=== PATIENT | female | born 1945 | race Caucasian/White ===

== ENCOUNTER 2017-09-15 08:17 | Day surgery (SDC) | payer MEDICARE, OTHER ==
[~2017-09-15] VITALS: Ht 152.4 cm; Wt 88.5 kg
[~2017-09-15 08:17] MED LIST: BYST10TA2 PO; DIOV160T6 PO; FELO10TA PO; GLYB5TA PO; HYDR25TAB PO; OFLOXACIN 0.3 % (OCUFLOX) OPTH SOL 5ML OS ONE; PHENYLEPHRINE 2.5% OPHTH SOL 2ML OS ONE; POTA10TA16 PO; PROPARACAINE 0.5% OPHTH SOL 15ML OS ONE; TROPICAMIDE 1% OPHTH SOLN 2ML OS ONE; ZOCO20TA PO
[2017-09-15] MEDS ORDERED: BALANCED SALT IRRIGATION SOLUTION 500ML BAG (FOR OR EYE MACHINE) As Ordered ONE (09:53)
[2017-09-15] MEDS ORDERED: CEFUROXIME 1MG/0.1ML INTRACAMERAL INJ As Ordered ONE (09:53)
[2017-09-15] MEDS ORDERED: POVIDONE-IODINE 5% OPHTH PREP SOL 30ML As Ordered ONE (09:53)
[2017-09-15] MEDS ORDERED: ACETYLCHOLINE OPHTH SOLN 1% 2ML (MIOCHOL-E) As Ordered ONE (09:53)
[2017-09-15] MEDS ORDERED: DUOVISC (0.50ML VISCOAT/0.55ML PROVISC) OPHTH KIT As Ordered ONE (09:53)
[2017-09-15] MEDS ORDERED: LIDOCAINE 0.75%/EPINEPHRINE 0.025% IN BSS 1ML SYR INTRACAMERAL (OR ONLY) As Ordered ONE (09:53)
[2017-09-15] MEDS ORDERED: fentaNYL 100 MCG/2 ML INJECTION (J3010) As Ordered ONE (10:13)
[2017-09-15] MEDS ORDERED: MIDAZOLAM INJ 2 MG/2 ML VIAL (J2250) As Ordered ONE (10:13)
[2017-09-15 11:30] VITALS: BP 172/73
--- NOTE | 2017-09-17 10:53 | RO ---
DATE OF PROCEDURE: 09/15/2017 PREOPERATIVE DIAGNOSIS: Visually significant nuclear sclerotic cataract left eye. POSTOPERATIVE DIAGNOSIS: Visually significant nuclear sclerotic cataract left eye. PROCEDURE: Cataract extraction with use of phacoemulsification and placement of intraocular lens, AU00T0, 18.0 diopters eye. SURGEON: David Hess DO [employer]: ANESTHESIA: Local with monitored anesthesia care (MAC). COMPLICATIONS: None. POSTOPERATIVE CONDITION: Stable. INDICATION FOR SURGERY: Blurred vision left eye affecting patient's activities of daily living. DESCRIPTION OF PROCEDURE: The patient was seen in the preoperative area and properly identified. The correct operative eye was identified and marked. Attention was turned to that eye. The patient received topical antibiotics in the preoperative area. The patient then received topical dilating drops consisting of tropicamide and phenylephrine. The patient was then transferred to the operating room. The correct side was re-identified. The patient received topical anesthetics and antibiotics on the surface of the eye. The eye was prepped and draped in a sterile fashion. The upper and lower eyelids were isolated with Tegaderm tape, and the lids were held open with an adjustable speculum. Using a sideport blade, a paracentesis incision was made. Intraocular preservative-free lidocaine was then injected into the anterior chamber. Viscoelastic was then injected into the anterior chamber through the paracentesis. Using a 2.4 mm sharp-tipped keratome, the anterior chamber was entered via a temporal clear corneal incision. A continuous curvilinear capsulorrhexis was created with the aid of a 26-gauge cystotome and Utrata forceps. Hydrodissection was performed with balanced salt solution (BSS) on a blunt cannula until the nucleus was freely mobile. The crystalline lens was phacoemulsified and aspirated. Additional cohesive viscoelastic was placed into the capsular bag to deepen it. An AU00T0, 18.0 diopters lens was placed into the capsular bag and confirmed by visualizing the continuous curvilinear capsulorrhexis. Additional irrigation and aspiration was used to remove cortical material and remaining viscoelastic. The clear corneal incision was hydrated with BSS on a blunt cannula. The lens was well positioned. The incisions were then tested for leaks and found to be negative. The eye was then palpated for appropriate pressure and adjusted accordingly with BSS. The eyelid speculum was carefully removed. A shield was placed. The patient tolerated the procedure well and was discharged to the recovery unit in a stable condition. BAL[place]
== END 2017-09-15 11:35 | disposition home or self-care (01) ==
LOC: M SDC 08:17
PROVIDERS: ATTEND Ophthalmology
DX: H25.12 Age-related nuclear cataract, left eye (principal); I10 Essential (primary) hypertension; E78.5 Hyperlipidemia, unspecified; E11.9 Type 2 diabetes mellitus without complications; Z79.899 Other long term (current) drug therapy
CPT/HCPCS: 66984; J2250; J3010; V2632

== ENCOUNTER 2017-10-06 06:19 | Day surgery (SDC) | payer MEDICARE, OTHER ==
[~2017-10-06] VITALS: Ht 152.4 cm; Wt 88.2 kg
[~2017-10-06 06:19] MED LIST changes: -OFLOXACIN 0.3 % (OCUFLOX) OPTH SOL 5ML OS ONE; -PHENYLEPHRINE 2.5% OPHTH SOL 2ML OS ONE; -PROPARACAINE 0.5% OPHTH SOL 15ML OS ONE; -TROPICAMIDE 1% OPHTH SOLN 2ML OS ONE
[2017-10-06] MEDS ORDERED: SLF 3 ML SYR IV PRN (06:30)
[2017-10-06] MEDS ORDERED: POVIDONE-IODINE 5% OPHTH PREP SOL 30ML As Ordered ONE (06:50)
[2017-10-06] MEDS ORDERED: CEFUROXIME 1MG/0.1ML INTRACAMERAL INJ As Ordered ONE (06:50)
[2017-10-06] MEDS ORDERED: ACETYLCHOLINE OPHTH SOLN 1% 2ML (MIOCHOL-E) As Ordered ONE (06:50)
[2017-10-06] MEDS ORDERED: BALANCED SALT IRRIGATION SOLUTION 500ML BAG (FOR OR EYE MACHINE) As Ordered ONE (06:50)
[2017-10-06] MEDS ORDERED: LIDOCAINE 0.75%/EPINEPHRINE 0.025% IN BSS 1ML SYR INTRACAMERAL (OR ONLY) As Ordered ONE (06:50)
[2017-10-06] MEDS ORDERED: DUOVISC (0.50ML VISCOAT/0.55ML PROVISC) OPHTH KIT As Ordered ONE (06:51)
[2017-10-06] MEDS ORDERED: OFLOXACIN 0.3 % (OCUFLOX) OPTH SOL 5ML OD ONE (07:00)
[2017-10-06] MEDS ORDERED: TROPICAMIDE 1% OPHTH SOLN 2ML OD ONE (07:00)
[2017-10-06] MEDS ORDERED: PHENYLEPHRINE 2.5% OPHTH SOL 2ML OD ONE (07:00)
[2017-10-06] MEDS ORDERED: PROPARACAINE 0.5% OPHTH SOL 15ML OD ONE (07:00)
[2017-10-06] MEDS ORDERED: fentaNYL 100 MCG/2 ML INJECTION (J3010) As Ordered ONE (07:36)
[2017-10-06] MEDS ORDERED: MIDAZOLAM INJ 2 MG/2 ML VIAL (J2250) As Ordered ONE (07:36)
[2017-10-06 08:33] VITALS: BP 150/69
[2017-10-06] MEDS ORDERED: SLF 3 ML SYR IV SCH (14:00)
--- NOTE | 2017-10-07 13:14 | RO ---
DATE OF PROCEDURE: 10/06/2017 PREOPERATIVE DIAGNOSIS: Visually significant nuclear sclerotic cataract right eye. POSTOPERATIVE DIAGNOSIS: Visually significant nuclear sclerotic cataract right eye. PROCEDURE: Cataract extraction with use of phacoemulsification and placement of intraocular lens, AU00T0, 17.5, right eye. SURGEON: David Hess DO [employer]: ANESTHESIA: Local with monitored anesthesia care (MAC). COMPLICATIONS: None. POSTOPERATIVE CONDITION: Stable. INDICATION FOR SURGERY: Blurred vision right eye affecting patient's activities of daily living. DESCRIPTION OF PROCEDURE: The patient was seen in the preoperative area and properly identified. The correct operative eye was identified and marked. Attention was turned to that eye. The patient received topical antibiotics in the preoperative area. The patient then received topical dilating drops consisting of tropicamide and phenylephrine. The patient was then transferred to the operating room. The correct side was re-identified. The patient received topical anesthetics and antibiotics on the surface of the eye. The eye was prepped and draped in a sterile fashion. The upper and lower eyelids were isolated with Tegaderm tape, and the lids were held open with an adjustable speculum. Using a sideport blade, a paracentesis incision was made. Intraocular preservative-free lidocaine was then injected into the anterior chamber. Viscoelastic was then injected into the anterior chamber through the paracentesis. Using a 2.65 mm sharp-tipped keratome, the anterior chamber was entered via a temporal clear corneal incision. A continuous curvilinear capsulorrhexis was created with the aid of a 26-gauge cystotome and Utrata forceps. Hydrodissection was performed with balanced salt solution (BSS) on a blunt cannula until the nucleus was freely mobile. The crystalline lens was phacoemulsified and aspirated. Additional cohesive viscoelastic was placed into the capsular bag to deepen it. An AU00T0, 17.5 lens was placed into the capsular bag and confirmed by visualizing the continuous curvilinear capsulorrhexis. Additional irrigation and aspiration was used to remove cortical material and remaining viscoelastic. The clear corneal incision was hydrated with BSS on a blunt cannula. The lens was well positioned. The incisions were then tested for leaks and found to be negative. The eye was then palpated for appropriate pressure and adjusted accordingly with BSS. The eyelid speculum was carefully removed. TobraDex ointment was placed in the eye. An eye patch and shield were then secured over the eye. The patient tolerated the procedure well and was discharged to the recovery unit in a stable condition.
== END 2017-10-06 08:34 | disposition home or self-care (01) ==
LOC: M SDC 06:19
PROVIDERS: ATTEND Ophthalmology
DX: H25.11 Age-related nuclear cataract, right eye (principal); I10 Essential (primary) hypertension; E11.9 Type 2 diabetes mellitus without complications; E78.5 Hyperlipidemia, unspecified; Z79.899 Other long term (current) drug therapy
CPT/HCPCS: 66984; J2250; J3010; V2632

== ENCOUNTER → 2018-07-11 | Outpatient (CLI) | payer MEDICARE, OTHER | LOC: M LRY 11:28 | DX: M25.572 Pain in left ankle and joints of left foot (principal) ==

== ENCOUNTER → 2018-07-11 | Outpatient (CLI) | payer MEDICARE, OTHER | LOC: M LRY 11:38 | DX: M25.572 Pain in left ankle and joints of left foot (principal) | CPT/HCPCS: 73610; G0463 ==